=== PATIENT | male | born 1960 | race Caucasian/White ===

== ENCOUNTER 2022-07-22 19:52 | Observation (INO) | payer OTHER, SELFPAY ==
[2022-07-22] VITALS (41 sets, daily range): BP systolic 138–178; BP diastolic 69–140; PULSE 85–114; RESP 15–38; TEMP 36.8; O2SAT 88–98
--- NOTE | 2022-07-22 19:45 | RT.EKG_ITS ---
APPROVED REPORT Exam: Resting ECG Reason for Exam: chest pain Patient Location: E HR:101 bpm ECG Measurements Heart Rate 101 AXIS VT 166 P 68 QRSd 123 QRS 59 QT 335 T [id number] QTc 435 Conclusion Fast sinus arrhythmia...V-rate 83-127, mean> 99 Probable left ventricular hypertrophy...(RaVL+SV3)xQRSd >280 Nonspecific T abnormalities, lateral leads...T <-0.10mV, I aVL V5 V6
--- NOTE | 2022-07-22 20:00 | DI.CT_ITS ---
Exam(s) CT CHEST PE CTA EXAM: CT CHEST PE CTA CLINICAL HISTORY: shortness of breath. TECHNIQUE: Imaging Protocol: Axial CT angiography was performed with multi-slice acquisition and mu lti-planar reconstructions as well as axial, coronal and sagittal MIP reconstructions. CONTRAST MATERIAL: Intravenous: Omnipaque 350 Contrast volume:100 ml COMPARISON: No exams were available for comparison FINDINGS: Pulmonary Arteries: No evidence of filling defect to suggest pulmonary emboli. Tracheobronchial tree: Patent where visualized. Mediastinum and Carmen: No dominant adenopathy or fluid collection. Pulmonary parenchyma: Evaluation limited by respiratory motion and expiratory changes. Patchy infilt rates noted in both upper lobes. No consolidation or dominant measurable mass. Pleura: Small bilateral pleural effusions. No pneumothorax. Heart: There is dilatation of the left ventricle and mild dilatation of the left atrium. Mild luna ry artery calcifications are seen. Aorta: Thoracic aorta non-dilated. No aneurysm. No dissection. Upper abdomen: Unremarkable. Bones: Degenerative changes greatest in the mid to lower thoracic spine. IMPRESSION: No evidence of pulmonary embolism. Small bilateral pleural effusions. Patchy upper lobe densities suspicious for pneumonitis. RADIATION DOSE DELIVERED: 595.1mGy.cm Total DLP DATA REPOSITORY: All CT scans at this facility are submitted to the National Radiology Data Registry (NRDR) Dose Index Registry (DIR) with the [employer] (ACR). RADIATION OPTIMIZATION: All CT scans at this facility use at least one of these dose optimization te chniques: automated exposure control; mA and/or kV adjustment per patient size (includes targeted exa ms where dose is matched to clinical indication); or iterative reconstruction.
--- NOTE | 2022-07-22 20:14 | ED.GENADUL_ITS ---
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 He denies fevers, has had a cough. He arrives stable, is able to speak clearly, caox4. He has diffuse wheezing bilaterally on exam with no murmurs, no jvd, no calf tenderness. His exam is consistent with likely copd exacerbation, will treat with methylprednisolone, duoneb, and evaluate for other causes of shortness of breath with cbc, cmp, ekg/troponin, cmp, probnp, and cta of the chest to evaluate for pe vs pneumonia labs show troponin minimally elevated at over 60, probnp 2000, cta shows pleural effusions, no clear infiltrate, no pe. Pt given 40mg lasix with 400cc urine output. He is now 89% on room air, given lab and imaging findings will admit for observation and likely echo tomorrow. Differential Diagnosis Differential Diagnosis: copd, asthma, pe, anemia Imaging Data Radiologic Study: Attestation: I personally reviewed and interpreted this imaging study as follows: Imaging: CT Scan Radiologist's impression: IMPRESSION: 1. No evidence of pulmonary embolus 2. Mild patchy bilateral upper lobe infiltrates concerning for nonspecific pneumonitis 3. Small bilateral pleural effusions Lab Data Lab results reviewed: Yes I reviewed the patient's lab results. ECG Data Attestation: I personally reviewed and interpreted this ECG (s) as follows: Prior ECG tracings: not available for review Interpretation: sinus tachycardia rate of 101, pr 166, no stemi HPI General Mode of arrival: ambulatory . Date/Time Provider Initiated Documentation: 07/22/22 20:00 . Limitations to Documentation: no limitations . Information obtained by: patient . History of Present Illness 62 year old M presents to the emergency department with the chief complaint of shortness of breath, described as moderate, Patient started experiencing this week(s) (3) and it has been constant. Rest improves symptom(s), Movement worsens symptoms . Patient notes chest pain and cough. General Stated Complaint: SOB QUIANA: 3 Review of Systems All systems reviewed & are unremarkable except as noted in HPI and below Constitutional Constitutional: Denies chills, Denies fever(s) and Denies weakness Cardiovascular Cardiovascular: Reports chest pain and Reports dyspnea Respiratory Respiratory: Reports cough and Reports dyspnea Gastrointestinal Gastrointestinal: Denies abdominal pain, Denies nausea and Denies vomiting Integumentary/Breasts Skin/Breast: Denies rash Neurologic Neurologic: Denies weakness PFSH All Active Problems (Updated 07/22/22 @ 22:05 by Miguel Corral MD) Shortness of breath (Acute) COPD (chronic obstructive pulmonary disease) (Chronic) CHF (congestive heart failure) (Chronic) Social History Smoking/Tobacco Use Status: Current every day Tobacco Type: cigarettes Tobacco: How many years used: 30 Smoking risk assessment performed?: Yes Alcohol Intake: current Alcohol Intake frequency: a few times a month Drug use: Never Substance use type: does not use Do you feel safe at home: Yes Do you feel safe in your relationship?: Yes Exam Const General: no acute distress Orientation: alert HENAR Head: normal to inspection Ears: external ears normal General nose exam: external nose normal Mouth: moist mucous membranes Eyes General: appearance normal, both eyes and all related structures Neck Neck: normal visual inspection Resp Effort & Inspection: normal respiratory effort and able to speak in complete sentences Auscultation: wheezes Cardio Rate: regular rate Skin General skin exam: no rashes or lesions noted Neuro General: patient alert and patient oriented x3 Course Vital Signs Vital signs: Vital Signs Temperature 36.8 C 07/22/22 19:55 Pulse 93 H 07/22/22 19:55 Respiratory Rate 20 07/22/22 19:55 Blood Pressure 174/94 H 07/22/22 19:55 Pulse Oximetry 93 07/22/22 19:55 Temperature 36.8 C 07/22/22 19:55 Temperature Source Tympanic 07/22/22 19:55 Pulse 93 H 07/22/22 19:55 Respiratory Rate 20 07/22/22 19:55 Respiratory Effort Short of Breath 07/22/22 19:59 Respiratory Depth Normal 07/22/22 19:59 Respiratory Pattern Normal 07/22/22 19:59 Blood Pressure 174/94 H 07/22/22 19:55 Blood Pressure Position Supine 07/22/22 19:55 Pulse Oximetry 93 07/22/22 19:55 Oxygen Delivery Method Room Air 07/22/22 19:55 Oxygen Flow Rate 0 07/22/22 19:55 Pain Level 3 07/22/22 19:55 PAWSS Have you Been Recently Intoxicated or Drunk Within the Last 30 days?: No Have you Ever Experienced Previous Episodes of Alcohol Withdrawal?: No Have you ever Experienced Withdrawal Seizures?: No Have you ever Experienced Delirium Tremens(DT)s?: No Have you ever undergone Alcohol Rehabilitation Treatment (i.e, inpt ot outpatient treatment programs)?: No Have you ever Experienced Blackouts?: No Have you ever Combined Alcohol with other Downers within the last 90 days?: No Have you ever Combined Alcohol with any other Substance of Abuse during the last 90 days?: No Positive Blood Alcohol level on Presentation? [PCS.BAL]: No Evidence of Increased Autonomic Activity (i.e. HR>120, tremor, sweating, agitation, nausea)?: No Result: 0
[2022-07-22 20:17] LABS: Source Nasal/Nares
[2022-07-22 20:19] LABS: Abs Immature Grans 0.04 10^3/uL (0.0-0.06); Absolute Basophil Count 0.05 10^3/uL (0.0-0.2); Absolute Eosinophil Count 0.16 10^3/uL (0.0-0.7); Absolute Lymphocyte Count 1.66 10^3/uL (1.2-3.4); Absolute Monocyte Count 0.67 10^3/uL (0.1-0.8); Absolute Neutrophil Count 7.72 10^3/uL (1.2-6.7); Basophils % 0.5; Eosinophils % 1.6; HCT 36.7 % (40.0-50.0); HGB 12.3 g/dL (13.5-17.5); Immature Grans % 0.4; Lymphocytes % 16.1; MCH 31.5 pg (27.0-33.0); MCHC 33.5 % (32.0-36.0); MCV 94 fL (80-95); MPV 9.7 fL (8.0-11.0); Monocytes % 6.5; Neutrophils % 74.9; Platelet Count 369 10^3/uL (130-400); RBC 3.91 10^6/uL (4.36-5.78); RDW 13.6 % (11.8-14.1); RDW-SD 46.6 fL
[2022-07-22] MEDS: Normal Saline Flush 10 ML SYR IVP (20:20)
[2022-07-22] MEDS: methylPREDNISolone SUCC 125 MG VIAL IVP (20:22)
[2022-07-22 20:34] LABS: INR 1.1 (0.9-1.1); PTT Activated 27.6 sec (21.5-31.9)
[2022-07-22] MEDS: Albuterol/Ipratropium 3 ML UPD VIAL UPD (20:36)
[2022-07-22 20:42] LABS: ALT 21 U/L (16-63); AST 16 U/L (15-37); Albumin 3.6 g/dL (3.4-5.0); Alkaline Phosphatase 86 U/L (46-116); Anion Gap 8.9 mmol/L (3-11); BUN 11 mg/dL (7-18); CO2 28.1 mmol/L (21.0-32.0); CREATININE 0.8 mg/dL (0.70-1.30); Calcium 8.9 mg/dL (8.5-10.1); Chloride 103 mmol/L (98-107); Estimated GFR 98.83 (mL/min/1.73m2); Glucose 128 mg/dL (74-106); Magnesium 2.1 mg/dL (1.8-2.4); NT-proBNP 2000 pg/mL (<300); Potassium 3.8 mmol/L (3.5-5.1); Sodium 140 mmol/L (136-145); Total Protein 7.3 g/dL (6.4-8.2)
[2022-07-22 20:45] LABS: TSH (W/Ref FT4) 1.04 uIU/mL (0.36-3.74)
[2022-07-22 20:47] LABS: Troponin I 66 ng/L (<or=60)
[2022-07-22 20:56] LABS: COVID-19 PCR Negative (Negative)
[2022-07-22] MEDS: Normal Saline - Diluent 50 ML VIAL IJ (20:58)
[2022-07-22] MEDS: Omnipaque 350 MG/ML 100 ML BTL IJ (21:01)
[2022-07-22] MEDS: Furosemide 40 MG/4 ML VIAL IVP (21:21)
--- NOTE | 2022-07-22 21:28 | DI.VRAD_ITS ---
PROCEDURE INFORMATION: Exam: CTA Chest With Contrast Exam date and time: 07/22/2022 8:59 PM Age: 62 years old Clinical indication: Shortness of breath; Additional info: SOB TECHNIQUE: Imaging protocol: Computed tomographic angiography of the chest with contrast. Exam focused on the arteries. 3D rendering (Not supervised by radiologist): MIP and/or 3D reconstructed images were created by the technologist. Radiation optimization: All CT scans at this facility use at least one of these dose optimization techniques: automated exposure control; mA and/or kV adjustment per patient size (includes targeted exams where dose is matched to clinical indication); or iterative reconstruction. Contrast material: OMNI 350; Contrast volume: 100 ml; Contrast route: INTRAVENOUS (IV); COMPARISON: No relevant prior studies available. FINDINGS: Pulmonary arteries: Normal. No pulmonary emboli. Aorta: Unremarkable. No aortic aneurysm. No aortic dissection. Lungs: Mild patchy ground-glass infiltrates are present in the anterior portions of the bilateral upper lung lobes. Lower lungs appear clear except for mild dependent atelectasis. Pleural spaces: There are small bilateral pleural effusions. No pneumothorax. Heart: Unremarkable. No cardiomegaly. No pericardial effusion. Lymph nodes: Unremarkable. No enlarged lymph nodes. Bones/joints: Moderate degenerative changes noted throughout the thoracic spine. No vertebral body compression or acute fracture. Soft tissues: Unremarkable. IMPRESSION: 1. No evidence of pulmonary embolus 2. Mild patchy bilateral upper lobe infiltrates concerning for nonspecific pneumonitis 3. Small bilateral pleural effusions Dictated and Authenticated by: Bharathi Kruse MD. Ordering:GUNNAR Rivera MD
--- NOTE | 2022-07-22 21:35 | NUR.NOTE ---
Nursing Note: This nurse gave pt a thorough education of care trajectory and needs for follow up care. Pt and pt's SO thanked this nurse for time spent and care given. Pt has call light and blankets for comfort.
[2022-07-22] MEDS: Aspirin 81 MG CHEW 324 MG CH (22:03)
--- NOTE | 2022-07-22 22:50 | HPE_ITS ---
Date of service: 07/22/22 Time of Service: 22:50 Assessment and Plan Assessment and plan (1) COPD exacerbation: Start date: 07/22/22 Status: Acute Assessment and plan: This is a 62-year-old gentleman who has history of COPD but this is worsened recently with what appears to be possible CHF exacerbation as well as COPD exacerbation. He will be treated aggressively for both having had transient hypoxemia but now normal pulse oximeter on room air. He continues to be dyspneic and speaks in short sentences. He also has a course cough. He will be covered for pneumonia as well. He is a full code. (2) Pneumonia: Start date: 07/22/22 Status: Acute Assessment and plan: Patchy upper lobe infiltrates with assoiatced hypoxemia on presentation. This will be covered with IV antibiotic therapy and community-acquired pneumonia. Patient is a smoker. (3) CHF (congestive heart failure): Start date: 07/22/22 Status: Acute Assessment and plan: Patient has had a 3-week history of progressive shortness of breath with may be associate with his smoking and COPD exacerbation but also an element of CHF responded to IV Lasix which will be continued. Follow-up echocardiogram in the morning. (4) Elevated troponin level not due to acute coronary syndrome: Start date: 07/22/22 Status: Acute Assessment and plan: Trend troponins and maximize treatment with beta-alan with patient blood pressure elevated at 1 point in the ED and high-dose statin. Follow-up echocardiogram. Long-term should have stratification of risk factors and further evaluation for advancing cardiac disease is a possibility with his risk factors. He is obese and should be evaluated for his sleep apnea. (5) Diabetes mellitus: Status: Chronic Assessment and plan: Patient's metformin will be held and he will be on glucometer measurements before meals and at bedtime with short acting insulin coverage. (6) HTN (hypertension): Status: Chronic Assessment and plan: Patient home medication will be reviewed when available and for now will have metoprolol 25 mg every 6 hours with presentation of slightly elevated troponins and possible CHF. History of Present Illness History of Present Illness Chief Complaint: Progressive dyspnea with exertion and peripheral edema for 3 weeks. Narrative: This is a 62-year-old male patient with history of hypertension, diabetes mellitus on metformin and a daily smoker who is a reach truck operator of groceries from [place] who has had a progressive shortness of breath which worsened the night of admission to where he stopped at this emergency room for evaluation. He has been driving on the job at the time he stopped. He has had no fevers or product ion of purulent sputum but his cough is worsened and he has audible wheezing. He does carry an inhaler which has not been helping. He denies any chest pain and though he has had some swelling in his lower extremities he has not had any calf tenderness. CT of the chest was performed and it did not reveal any pulmonary emboli but patchy infiltrates of the upper lobes and small bilateral pleural effusion for which the patient was given Lasix with some response. He continues to be borderline hypoxic and his troponin was slightly elevated with no history of CAD. His BNP was elevated as well and he has had an echoarcdiogram years ago but not recently. He appears to have secondary strain of his heart from his respiratory status and possibility of new onset heart failure with his pleural effusions, therefore will be admitted for IV diuretics and aggressive respiratory treatments as well as treatment of his pneumonia with echocardiogram in the morning. He is in no distress. Patient is a full code. Review of Systems Narrative: 13 point review of systems otherwise unrevealing or stable. PFSH All Active Problems (Updated 07/23/22 @ 00:29 by Joseph Oneal) HTN (hypertension) (Chronic) Diabetes mellitus (Chronic) Pneumonia (Acute) Elevated troponin level not due to acute coronary syndrome (Acute) COPD exacerbation (Acute) Shortness of breath (Acute) COPD (chronic obstructive pulmonary disease) (Chronic) CHF (congestive heart failure) (Acute) Social History Smoking/Tobacco Use Status: Current every day Tobacco Type: cigarettes Tobacco: How many years used: 30 Smoking risk assessment performed?: Yes Alcohol Intake: current Alcohol Intake frequency: a few times a month Drug use: Never Substance use type: does not use Do you feel safe at home: Yes Do you feel safe in your relationship?: Yes Exam Narrative Exam Narrative: General: Patient appears older than stated age, moderately obese especially over the trunk, disheveled and slightly unkempt. He has a hoarse voice. He is alert and oriented x3 and in no acute distress. He does speak in short sentences. HEENT: Normocephalic, hair coarsened with wang hair and heavy mustache, coarsened facial features, eyes with pupils equal and react to light symmetrically, extraocular movement intact and sclera anicteric. Oropharynx with missing teeth and discoloration with caries, moist mucosa. Neck: Supple without JVD. Back: Stooped posture without CVA tenderness. Lungs: Coarse rhonchi with inspiration and expiration with increased expiratory phase and diffuse expiratory wheeze and rhonchi with cough. No focalizing rales. Poor aeration. No egophony. Heart: Regular rate and rhythm with no murmurs or gallops appreciated. Abdomen: Obese contour, soft and nontender to palpation with no palpable h epatosplenomegaly. Bowel sounds positive in all quadrants. Multiple partially healed excoriations over his abdomen with hyperpigmentation which he states are scratches from his [employer] puppy. Genitalia/rectal: Exam deferred. Extremities: 1-2+ pitting edema over ankles bilaterally, no clubbing or cyanosis. Fair capillary refill. Skin: Normal color, warm and dry. Lesions over the abdomen as mentioned. Neuro: Cranial nerves II through XII gross intact, no focal motor deficits. No tremor. Psych: Normal affect and mood. No abnormal thought processes. Remote and recent memory grossly intact. Results Imaging Imaging Studies: Exam: CTA Chest With Contrast Exam date and time: 07/22/2022 8:59 PM Age: 62 years old Clinical indication: Shortness of breath; Additional info: SOB TECHNIQUE: Imaging protocol: Computed tomographic angiography of the chest with contrast. Exam focused on the arteries. 3D rendering (Not supervised by radiologist): MIP and/or 3D reconstructed images were created by the technologist. Radiation optimization: All CT scans at this facility use at least one of these dose optimization techniques: automated exposure control; mA and/or kV adjustment per patient size (includes targeted exams where dose is matched to clinical indication); or iterative reconstruction. Contrast material: OMNI 350; Contrast volume: 100 ml; Contrast route: INTRAVENOUS (IV);? COMPARISON: No relevant prior studies available. FINDINGS: Pulmonary arteries: Normal. No pulmonary emboli. Aorta: Unremarkable. No aortic aneurysm. No aortic dissection. Lungs: Mild patchy ground-glass infiltrates are present in the anterior portions of the bilateral upper lung lobes. Lower lungs appear clear except for mild dependent atelectasis. Pleural spaces: There are small bilateral pleural effusions. No pneumothorax. Heart: Unremarkable. No cardiomegaly. No pericardial effusion. Lymph nodes: Unremarkable. No enlarged lymph nodes. Bones/joints: Moderate degenerative changes noted throughout the thoracic spine. No vertebral body compression or acute fracture. Soft tissues: Unremarkable. IMPRESSION: 1.? No evidence of pulmonary embolus 2. Mild patchy bilateral upper lobe infiltrates concerning for nonspecific pneumonitis 3.? Small bilateral pleural effusions Labs 07/22/22 20:10 07/22/22 20:10 Labs: Laboratory Results - last 24 hr 07/22/22 07/22/22 07/22/22 20:10 20:10 20:10 WBC RBC Hgb Hct MCV MCH MCHC RDW Plt Count MPV Immature Gran % Neutrophils % Lymphocytes % Monocytes % Eosinophils % Basophils % Nucleated RBC % Absolute Neutrophils Absolute Lymphocytes Absolute Monocytes Absolute Eosinophils Absolute Basophils PT INR APTT Sodium 140 Potassium 3.8 Chloride 103 Carbon Dioxide 28.1 Anion Gap 8.9 BUN 11 Creatinine 0.8 Est GFR (CKD-EPI 2020) 98.83 Glucose 128 H Calcium 8.9 Magnesium 2.1 Total Bilirubin 2.0 H AST 16 ALT 21 Alkaline Phosphatase 86 Troponin I 66 H* NT-Pro-B Natriuret Pep 2000 H Total Protein 7.3 Albumin 3.6 TSH 1.04 COVID-19 Source Nasal/Nares SARS-CoV-2 (PCR) Negative 07/22/22 07/22/22 20:10 20:10 WBC 10.30 RBC 3.91 L Hgb 12.3 L Hct 36.7 L MCV 94 MCH 31.5 MCHC 33.5 RDW 13.6 Plt Count 369 MPV 9.7 Immature Gran % 0.4 Neutrophils % 74.9 Lymphocytes % 16.1 Monocytes % 6.5 Eosinophils % 1.6 Basophils % 0.5 Nucleated RBC % 0.0 Absolute Neutrophils 7.72 H Absolute Lymphocytes 1.66 Absolute Monocytes 0.67 Absolute Eosinophils 0.16 Absolute Basophils 0.05 PT 11.0 INR 1.1 APTT 27.6 Sodium Potassium Chloride Carbon Dioxide Anion Gap BUN Creatinine Est GFR (CKD-EPI 2020) Glucose Calcium Magnesium Total Bilirubin AST ALT Alkaline Phosphatase Troponin I NT-Pro-B Natriuret Pep Total Protein Albumin TSH COVID-19 Source SARS-CoV-2 (PCR) Last Vital Signs Temp 36.8 C 07/22/22 19:55 Pulse 85 07/22/22 22:01 Resp 24 07/22/22 22:01 BP 178/120 H 07/22/22 22:01 Pulse Ox 92 07/22/22 22:01 PAWSS Have you Been Recently Intoxicated or Drunk Within the Last 30 days?: No Have you Ever Experienced Previous Episodes of Alcohol Withdrawal?: No Have you ever Experienced Withdrawal Seizures?: No Have you ever Experienced Delirium Tremens(DT)s?: No Have you ever undergone Alcohol Rehabilitation Treatment (i.e, inpt ot outpatient treatment programs)?: No Have you ever Experienced Blackouts?: No Have you ever Combined Alcohol with other Downers within the last 90 days?: No Have you ever Combined Alcohol with any other Substance of Abuse during the last 90 days?: No Positive Blood Alcohol level on Presentation? [PCS.BAL]: No Evidence of Increased Autonomic Activity (i.e. HR>120, tremor, sweating, agitation, nausea)?: No Result: 0 Time Spent Time spent with Patient: >75 minutes Time was spent: preparing to see the patient(eg.review tests), obtaining and/or reviewing separately otained hiistory, ordering medications,tests, procedures, referring, communicating with other health long term acute care registered nurse, indepentently interpreting results, counseling the patient and care coordination
[2022-07-23] VITALS (103 sets, daily range): BP systolic 127–153; BP diastolic 70–86; PULSE 60–102; RESP 0–32; O2SAT 85–98
[2022-07-23] MEDS: Albuterol/Ipratropium 3 ML UPD VIAL UPD ×2 (00:04→05:01)
[2022-07-23] MEDS: cefTRIAXone 1 GM/50 ML BAG IVPB (00:04)
[2022-07-23] MEDS: Melatonin 3 MG TAB PO (00:04)
[2022-07-23] MEDS: Metoprolol 25 MG TAB PO ×2 (00:05→05:01)
[2022-07-23] MEDS: Enoxaparin 40 MG/0.4 ML SYR SC (00:23)
[2022-07-23] MEDS: Atorvastatin 40 MG TAB 80 MG PO (00:24)
[2022-07-23 00:54] LABS: Troponin I 53 ng/L (<or=60)
[2022-07-23] MEDS: AZITHROMYCIN 500 MG in Normal Saline 250 ML 250 MG IVPB (01:25)
[2022-07-23] MEDS: methylPREDNISolone SUCC 125 MG VIAL 80 MG IVP (05:00)
[2022-07-23 05:18] LABS: HCT 38.4 % (40.0-50.0); HGB 12.5 g/dL (13.5-17.5); MCH 31.2 pg (27.0-33.0); MCHC 32.6 % (32.0-36.0); MCV 96 fL (80-95); MPV 9.8 fL (8.0-11.0); Platelet Count 380 10^3/uL (130-400); RBC 4.01 10^6/uL (4.36-5.78); RDW 13.8 % (11.8-14.1); RDW-SD 48.6 fL; WBC 10.71 10^3/uL (4.4-10.8)
[2022-07-23 05:36] LABS: Calculated LDL 165 mg/dL (<100); Cholesterol 212 mg/dL (<200); HDL Cholesterol 36 mg/dL (40-60); Triglyceride 55 mg/dL (<150)
[2022-07-23 05:46] LABS: ALT 21 U/L (16-63); AST 15 U/L (15-37); Albumin 3.5 g/dL (3.4-5.0); Alkaline Phosphatase 94 U/L (46-116); Anion Gap 8.6 mmol/L (3-11); BUN 14 mg/dL (7-18); Bilirubin, Total 1.6 mg/dL (0.2-1.0); CO2 29.4 mmol/L (21.0-32.0); CREATININE 1.1 mg/dL (0.70-1.30); Calcium 8.9 mg/dL (8.5-10.1); Chloride 102 mmol/L (98-107); Estimated GFR 74.96 (mL/min/1.73m2); Glucose 224 mg/dL (74-106); Magnesium 2.3 mg/dL (1.8-2.4); Potassium 4.4 mmol/L (3.5-5.1); Sodium 140 mmol/L (136-145); Total Protein 7.5 g/dL (6.4-8.2)
[2022-07-23 05:48] LABS: NT-proBNP 2009 pg/mL (<300); Troponin I < 50 ng/L (<or=60)
--- NOTE | 2022-07-23 08:00 | DI.US_ITS ---
APPROVED REPORT EXAM: Comprehensive 2D, Doppler, and color-flow Echocardiogram Patient Location: ER Room/Bed: 6 [employer]chand[employer] Manager: Beny Rosa RDMS, RVT Indications: CHF, ESCALANTE, COPD, HTN Other Information Study Quality: Fair. Technically limited study due to body habitus. Conclusion Moderately dilated left ventricle. Ejection fraction is estimated at 30%. There is global hypokines is without segmental wall motion abnormalities Right ventricular size and systolic function is grossly normal Both atria are normal in size There is no structural or hemodynamically significant valvular disease Right ventricular systolic pressure could not be estimated Mildly dilated ascending aorta measuring 3.54 cm Wall motion Left Ventricle Left ventricle is moderately dilated. Left ventricular systolic function is moderately to severely d ecreased. There is normal left ventricular wall thickness. There is global hypokinesis of the left ve ntricle. There is no ventricular septal defect visualized. LVEF is 30% Right Ventricle The right ventricle is normal size. Right ventricular systolic function is grossly normal. Unable to assess PA pressure. Atria The left atrium size is normal. The right atrium size is normal. The interatrial septum is intact wit h no evidence for an atrial septal defect. Aortic Valve The Aortic valve is sclerotic. Aortic valve is trileaflet. There is no aortic valvular stenosis. No aortic regurgitation is present. Mitral Valve Mild mitral annular calcification. No evidence of mitral valve stenosis. Trace mitral regurgitation. Tricuspid Valve The tricuspid valve is normal in structure. There is no tricuspid valve stenosis. Trace tricuspid reg urgitation. Pulmonic Valve Pulmonic valve is not well visualized. There is no pulmonic valvular stenosis. There is no pulmonic v alvular regurgitation. Great Vessels The aortic root is normal in size. Ascending aorta is borderline normal in caliber. Aortic arch is no t well visualized. IVC is normal in size and collapses >50% with inspiration. Pericardium There is no pericardial effusion. 2D Dimensions IVSD d PLAX 0.99 cm M: 0.6-1.2 LV Vol A2C d MOD 225.0 mL LVPW d PLAX 1.01 cm M: 0.6 - 1.2 LV Vol A4C d MOD 251.9 mL LVID d PLAX 6.76 cm M: 4.2 - 5.8 LA vol/ BSA A4C s A-L 17.7 mL/m2 LVDs 5.05 cm M: 2.5 - 4.0 LA Area A4C s MOD 16.28 cm2 Ao Root d 3.70 cm M: 3.1 - 3.7 LV EF A4C MOD 35.1 % Ao Asc Diam d 3.54 cm M: 2.6 - 3.4 LV EF A2C MOD 38.2 % LV EF Teichholz 48.1 % LV EF Biplane MOD 33.0 % LVEF (Suazo's) 33.03 % M: 52 - 72 SV 79.00 mL LV Volume 171.67 mL M: 62 - 150 SV Index 34.42 mL/m2 LV Volume Index 74.63 mL/m2 M: 34 - 74 LV Vol Biplane MOD 239.1 mL FS 24.90 % M-Mode TAPSE 2.21 cm (M/F) >1.7 LV Diastology MV E' lateral 0.092 (>0.1 m/s) E/A Ratio 1.8 LV E/e LAT 11.40 (<14) MV E Vmax 1.05 (0.4-1.3 m/s) MV E/E' lateral 11.44 MV A Vmax 0.60 (0.4-1.3 m/s) MV E/A Ratio 1.71 Aortic Valve LVOT Area 3.75 cm2 AoV Area Vmax 2.78 cm2 LVOT Vmax 1.10 m/s AoV Area/ BSA (Vmax) 1.21 cm2/m2 LVOT Mean Moody. 0.73 m/s FAUSTINA Mean Moody. 2.77 cm2 LVOT Peak Grad 4.9 mmHg FAUSTINA Mean Moody. Index 1.21 cm2/m2 LVOT Mean Grad 2.5 mmHg LVOT VTI 0.212 m LVOT Diam s 2.15 cm AoV Vmax 1.49 m/s Velocity Ratio 0.74 AoV Mean Modoy. 0.99 m/s AoV Peak Grad 8.9 mmHg LVOT SV 79.59 mL AoV Mean Grad 4.6 mmHg AoV VTI 0.242 m AoV Area VTI 3.28 cm2 AoV Area/ BSA (VTI) 1.43 cm/m2 Mitral Valve MV DT 162 (160-240 msec) MV PHT 47 msec MV Area PHT 4.69 cm2 MV VTI 0.361 m MV Area VTI 2.21 (4.0-6.0 cm2) Pulmonary Valve PV Vmax 0.87 (0.5-1.5 m/s) RVOT Peak Gr. 1.31 mmHg PV Peak Grad 3.1 mmHg RVOT Mean Gr. 0.65 mmHg PV Mean Grad 1.8 mmHg RVOT VTI 0.105 m PV VTI 0.165 m RVOT Vmax 0.57 m/s Tricuspid Valve RA Pressure 3.00 mmHg
[2022-07-23] MEDS: Furosemide 40 MG/4 ML VIAL IVP (08:43)
--- NOTE | 2022-07-23 10:35 | NUR.NOTE ---
pt stating he wants to leave. hospitalist made aware. hospitalist to come down and see patient.
--- NOTE | 2022-07-23 12:47 | W.PM.DS.N ---
Date of service: 07/23/22 Time of Service: 12:47 DS: Diagnosis Discharge Diagnosis (1) COPD exacerbation: Status: Acute (2) Pneumonia: Status: Acute (3) CHF (congestive heart failure): Status: Acute (4) Elevated troponin level not due to acute coronary syndrome: Status: Acute (5) Diabetes mellitus: Status: Chronic (6) HTN (hypertension): Status: Chronic Discharge Plan Disposition Patient Disposition: Home Condition: Improving Discharge Details Clinical Impression: CHF (congestive heart failure), Shortness of breath, COPD (chronic obstructive pulmonary disease) Primary Care Provider: Jean Claude Echeverria ED Provider: Miguel Corral Home Meds and New Rx's Prescriptions: New prednisone 20 mg Tablet 40 mg PO DAILY Qty: 8 0RF carvedilol 3.125 mg Tablet 3.125 mg PO BID Qty: 60 0RF aspirin [Children's Aspirin] 81 mg Tablet,Chewable 81 mg PO DAILY Qty: 30 0RF Continued metformin 500 mg Tablet 500 mg 1XD lisinopril 20 mg Tablet 20 mg DAILY ibuprofen 800 mg Tablet 1,600 mg QAM ibuprofen 800 mg Tablet 800 mg QPM Discharge Instructions Instructions: Heart Failure (DC) Additional Instructions: Please see your primary care provider as soon as possible for further cardiology work up. Present to closest emergency department sooner for new or worsening symptoms. Referrals: Jean Claude Echeverria [Primary Care Provider] - (call your primary care provider as soon as possible for further outpatient cardiology evaluation. return to closest emergency department sooner for new or worsening symptoms) Discharge Data Discharge Date/Time-TO BE ENTERED AT DEPARTURE: 07/23/22 14:37 DS: Summary Time Spent with Patient providing and/or coordinating discharge services: Less than 30 minutes Status at Discharge Functional status at discharge: independent ambulation Overall status at discharge: patient is back to baseline Mental Status: mental status grossly normal Speech and Movement: speech and movement normal Mood: congruent mood Affect: normal affect Exam Const General: no acute distress Orientation: alert HENMT Head: normal to inspection Ears: external ears normal General nose exam: external nose normal Mouth: moist mucous membranes Eyes General: appearance normal, both eyes and all related structures Neck Neck: normal visual inspection Resp Effort & Inspection: normal respiratory effort and able to speak in complete sentences Auscultation: wheezes Cardio Rate: regular rate Rhythm: regular rhythm Heart Sounds: no murmurs GI Inspection: normal to inspection Palpation: soft Skin General skin exam: no rashes or lesions noted Neuro General: patient alert and patient oriented x3 Psych Mental Status: mental status grossly normal Speech and Movement: speech and movement normal Mood: congruent mood Affect: normal affect DS: Data Vitals/I&O Vitals and I&O: Vital Signs Temperature 36.8 C 07/22/22 19:55 Temperature Source Tympanic 07/22/22 19:55 Pulse 96 H 07/23/22 10:02 Pulse 73 07/23/22 06:40 Respiratory Rate 29 H 07/23/22 10:04 Respiratory Effort Short of Breath 07/22/22 19:59 Respiratory Depth Normal 07/22/22 19:59 Respiratory Pattern Normal 07/22/22 19:59 Blood Pressure 148/83 H 07/23/22 10:02 Blood Pressure Mean 89 07/23/22 04:58 Blood Pressure Position Supine 07/22/22 19:55 Pulse Oximetry 97 07/23/22 10:06 Oxygen Delivery Method Room Air 07/22/22 19:55 Oxygen Flow Rate 0 07/22/22 19:55 Pain Level 3 07/22/22 19:55 Intake & Output 07/22/22 07/23/22 07/23/22 23:59 11:59 23:59 Intake Total 300 / 300 Output Total 1200 / 1200 1300 / 1300 Balance -1200 / -1200 -1000 / -1000 Weight 113.398 kg Intake: IV 300 / 300 Output: Urine 1200 / 1200 1300 / 1300 Data Completed and Pending Labs on day of discharge: Labs from last 24 hours 07/23/22 07/23/22 07/23/22 05:10 05:10 05:10 WBC 10.71 RBC 4.01 L Hgb 12.5 L Hct 38.4 L MCV 96 H MCH 31.2 MCHC 32.6 RDW 13.8 Plt Count 380 MPV 9.8 Immature Gran % Neutrophils % Lymphocytes % Monocytes % Eosinophils % Basophils % Nucleated RBC % Absolute Neutrophils Absolute Lymphocytes Absolute Monocytes Absolute Eosinophils Absolute Basophils PT INR APTT Sodium 140 Potassium 4.4 Chloride 102 Carbon Dioxide 29.4 Anion Gap 8.6 BUN 14 Creatinine 1.1 Est GFR (CKD-EPI 2020) 74.96 Glucose 224 H Calcium 8.9 Magnesium 2.3 Total Bilirubin 1.6 H AST 15 ALT 21 Alkaline Phosphatase 94 Troponin I < 50 NT-Pro-B Natriuret Pep Total Protein 7.5 Albumin 3.5 Triglycerides Total Cholesterol LDL Cholesterol, Calc HDL Cholesterol TSH COVID-19 Source SARS-CoV-2 (PCR) 07/23/22 07/23/22 07/23/22 05:10 05:10 00:30 WBC RBC Hgb Hct MCV MCH MCHC RDW Plt Count MPV Immature Gran % Neutrophils % Lymphocytes % Monocytes % Eosinophils % Basophils % Nucleated RBC % Absolute Neutrophils Absolute Lymphocytes Absolute Monocytes Absolute Eosinophils Absolute Basophils PT INR APTT Sodium Potassium Chloride Carbon Dioxide Anion Gap BUN Creatinine Est GFR (CKD-EPI 2020) Glucose Calcium Magnesium Total Bilirubin AST ALT Alkaline Phosphatase Troponin I 53 NT-Pro-B Natriuret Pep 2009 H Total Protein Albumin Triglycerides 55 Total Cholesterol 212 H LDL Cholesterol, Calc 165 H HDL Cholesterol 36 L TSH COVID-19 Source SARS-CoV-2 (PCR) 07/22/22 07/22/22 07/22/22 20:10 20:10 20:10 WBC 10.30 RBC 3.91 L Hgb 12.3 L Hct 36.7 L MCV 94 MCH 31.5 MCHC 33.5 RDW 13.6 Plt Count 369 MPV 9.7 Immature Gran % 0.4 Neutrophils % 74.9 Lymphocytes % 16.1 Monocytes % 6.5 Eosinophils % 1.6 Basophils % 0.5 Nucleated RBC % 0.0 Absolute Neutrophils 7.72 H Absolute Lymphocytes 1.66 Absolute Monocytes 0.67 Absolute Eosinophils 0.16 Absolute Basophils 0.05 PT 11.0 INR 1.1 APTT 27.6 Sodium 140 Potassium 3.8 Chloride 103 Carbon Dioxide 28.1 Anion Gap 8.9 BUN 11 Creatinine 0.8 Est GFR (CKD-EPI 2020) 98.83 Glucose 128 H Calcium 8.9 Magnesium 2.1 Total Bilirubin 2.0 H AST 16 ALT 21 Alkaline Phosphatase 86 Troponin I NT-Pro-B Natriuret Pep 2000 H Total Protein 7.3 Albumin 3.6 Triglycerides Total Cholesterol LDL Cholesterol, Calc HDL Cholesterol TSH COVID-19 Source SARS-CoV-2 (PCR) 07/22/22 07/22/22 20:10 20:10 WBC RBC Hgb Hct MCV MCH MCHC RDW Plt Count MPV Immature Gran % Neutrophils % Lymphocytes % Monocytes % Eosinophils % Basophils % Nucleated RBC % Absolute Neutrophils Absolute Lymphocytes Absolute Monocytes Absolute Eosinophils Absolute Basophils PT INR APTT Sodium Potassium Chloride Carbon Dioxide Anion Gap BUN Creatinine Est GFR (CKD-EPI 2020) Glucose Calcium Magnesium Total Bilirubin AST ALT Alkaline Phosphatase Troponin I 66 H* NT-Pro-B Natriuret Pep Total Protein Albumin Triglycerides Total Cholesterol LDL Cholesterol, Calc HDL Cholesterol TSH 1.04 COVID-19 Source Nasal/Nares SARS-CoV-2 (PCR) Negative PFSH All Active Problems (Updated 07/23/22 @ 00:29 by Joseph Oneal) HTN (hypertension) (Chronic) Diabetes mellitus (Chronic) Pneumonia (Acute) Elevated troponin level not due to acute coronary syndrome (Acute) COPD exacerbation (Acute) Shortness of breath (Acute) COPD (chronic obstructive pulmonary disease) (Chronic) CHF (congestive heart failure) (Acute) Social History Smoking/Tobacco Use Status: Current every day Tobacco Type: cigarettes Tobacco: How many years used: 30 Smoking risk assessment performed?: Yes Alcohol Intake: current Alcohol Intake frequency: a few times a month Drug use: Never Substance use type: does not use Do you feel safe at home: Yes Do you feel safe in your relationship?: Yes Time Spent with Patient Time Spent with Patient: <45 minutes Time was spent: preparing to see the patient(eg.review tests), obtaining and/or reviewing separately otained hiistory, ordering medications,tests, procedures, indepentently interpreting results and counseling the patient
[2022-07-23 13:48] LABS: Procalcitonin < 0.1 ng/mL
--- NOTE | 2022-07-27 13:45 | NUR.NOTE ---
Nursing Note: Patient called today to request work release to drive from 07/22/2022. Phone number [phone]. Accessed chart for this reason.
--- NOTE | 2022-07-27 16:01 | NUR.NOTE ---
Nursing Note: Accessed pt chart to assist him in getting a work release for driving.
== END 2022-07-23 14:37 | disposition home or self-care (01) | DRG 190 ==
LOC: ER 07-23 14:23 → MS 08-05 16:37
PROVIDERS: Nurse Practitioner Acute Care; Admitting Provider Family Medicine; Emergency Provider Emergency Medicine; Visit Provider Family Medicine
DX: J44.0 Chronic obstructive pulmonary disease with (acute) lower respiratory infection (principal); J18.9 Pneumonia, unspecified organism; J44.1 Chronic obstructive pulmonary disease with (acute) exacerbation; R09.02 Hypoxemia; R74.8 Abnormal levels of other serum enzymes; E11.9 Type 2 diabetes mellitus without complications; Z79.84 Long term (current) use of oral hypoglycemic drugs; I11.0 Hypertensive heart disease with heart failure; F17.210 Nicotine dependence, cigarettes, uncomplicated; I50.9 Heart failure, unspecified
CPT/HCPCS: 71275; 80053; 80061; 84145; 85027; 87635; 93005; 96365; 96366; 96368; 96372; 96375; J1650; 83735; 83880; 84443; 84484; 85025; 85610; 85730; 93010; 93306; 99223; 99238; J0456; J0696; J1940; J2930; J3490; J7620